=== PATIENT | female | born 1985 | race Caucasian/White ===

== ENCOUNTER → 2020-01-23 15:58 | Outpatient (BNVA) | payer SELFPAY | PROVIDERS: Visit Provider Nurse Practitioner Family | DX: Z79.899 Other long term (current) drug therapy (principal); Z13.6 Encounter for screening for cardiovascular disorders; R53.83 Other fatigue; E55.9 Vitamin D deficiency, unspecified; K59.04 Chronic idiopathic constipation; R10.9 Unspecified abdominal pain | CPT/HCPCS: 74018; 80053; 80061; 82150; 83036; 83690; 83721; 84443; 85025 ==

== ENCOUNTER → 2020-01-24 11:00 | Outpatient (BNVA) | payer SELFPAY | PROVIDERS: Visit Provider Nurse Practitioner Family | DX: Z79.899 Other long term (current) drug therapy (principal); Z13.6 Encounter for screening for cardiovascular disorders; R53.83 Other fatigue; K59.04 Chronic idiopathic constipation; E55.9 Vitamin D deficiency, unspecified | CPT/HCPCS: 82306 ==

== ENCOUNTER → 2020-02-20 10:53 | Outpatient (BNVA) | payer SELFPAY | PROVIDERS: Visit Provider Nurse Practitioner Family | DX: Z12.4 Encounter for screening for malignant neoplasm of cervix (principal); N89.8 Other specified noninflammatory disorders of vagina; C51.9 Malignant neoplasm of vulva, unspecified; A59.01 Trichomonal vulvovaginitis; B37.3 Candidiasis of vulva and vagina | CPT/HCPCS: 87070; 87205; 88175 ==

== ENCOUNTER → 2021-08-25 15:41 | Outpatient (BNVA) | payer MEDICAID, SELFPAY | PROVIDERS: PCP Registered Nurse; Visit Provider Registered Nurse | DX: R30.0 Dysuria (principal); R39.9 Unspecified symptoms and signs involving the genitourinary system | CPT/HCPCS: 81000; 87086 ==

== ENCOUNTER 2021-10-07 12:02 | Emergency (ER) | payer MEDICAID, SELFPAY ==
[2021-10-07 12:17] VITALS: BP 125/78; PULSE 69; RESP 12; TEMP 36.6; O2SAT 99; BMI 29.8
[2021-10-07 13:36] LABS: Basophils # 0.1 10^3/uL (0.0-0.1); Basophils % 0.8 %; Eosinophils # 0.2 10^3/uL (0.0-0.8); Eosinophils % 2.6 %; Hematocrit 43.5 % (37.0-47.0); Hemoglobin 14.2 g/dL (11.5-15.3); Lymphocytes # 2.4 10^3/uL (0.8-4.8); Mean Corpuscular HGB Conc 32.6 g/dL (30.0-36.0); Mean Corpuscular Hemoglobin 29.9 pg (28.0-34.0); Mean Corpuscular Volume 91.6 fl (81-99); Mean Platelet Volume 9.9 fL (7.4-10.4); Monocytes # 0.6 10^3/uL (0.2-0.9); Monocytes % 6.2 %; Neutrophils # 5.94 10^3/uL (1.8-7.7); Neutrophils % 64.1 %; Nucleated Red Blood Cells % 0 %; Platelet Count 393 10^3/cmm (130-400); Red Blood Count 4.75 10^6/uL (4.1-5.3); Red Cell Distribution Width 13.6 % (12.1-15.1); White Blood Count 9.3 10^3/uL (4.0-10.0)
[2021-10-07 13:52] LABS: Alanine Aminotransferase 25 U/L (0-33); Albumin Level 4.2 g/dL (3.5-5.2); Alkaline Phosphatase 107 IU/L (35-105); Anion Gap 11.4 (5-19); Aspartate Amino Transferase 18 U/L (0-32); Blood Urea Nitrogen 8 mg/dL (6-20); Carbon Dioxide 29 mmol/L (22-29); Chloride 98 mmol/L (98-107); Globulin 2.8 g/dL (1.3-4.6); Glomerular Filtration Rate 81.6 mL/min (90-130); Glucose 89 mg/dL (65-115); Osmolality Calculated 278 mOsm/kg (285-295); Potassium 3.4 mmol/L (3.5-5.1); Sodium 135 mmol/L (136-145); Total Bilirubin 0.4 mg/dL (0.15-1.2)
--- NOTE | 2021-10-07 13:53 | W.ED.ABDPA2 ---
Documented by User: LIZ Ramos 10/07/21 14:24 HPI - Abdominal Pain General: Chief Complaint: Back Pain/Injury Stated Complaint: low back/abd pain Time Seen by Provider: 10/07/21 13:20 Source: patient Mode of arrival: ambulatory Limitations: no limitations History of Present Illness: Patient is a 36-year-old female presents to ED today with a complaint of bilateral flank pain wrapping around into her epigastric region over the past 5 to 6 days. She states she does have a history of pyelonephritis but thinks this feels different. She has been taking large amounts of ibuprofen for her discomfort and does state this seems to alleviate her pain. She is not having any dysuria or hematuria. She does report some urgency and frequency. She is not having any vaginal discharge, odor, bleeding. She has not been running fevers. No vomiting. She is having normal bowel movements. No history of GI bleed. MD elicited complaint: abdominal pain Onset (ago): day(s) Pain Consistency: constant Location: Epigastric Severity: severe Pain scale (0-10): 8 Quality: aching Relieving factors: other (ibuprofen) Associated Symptoms: Reports heartburn; Denies change in bowel habits, chills, constipation, diarrhea, dysuria, fever(s), hematuria, hematemesis and vomiting Treatments prior to arrival: NSAIDs Review of Systems Const: Denies: fever(s), chills, body aches, fatigue or malaise Card: Denies: chest pain Resp: Denies: dyspnea GI: Reports: abdominal pain and heartburn; Denies: vomiting, hematemesis, diarrhea, constipation or change in bowel habits : Denies: flank pain, dysuria, hematuria, vaginal odor, vaginal bleeding, vaginal discharge or pelvic pain Musc: Reports: back pain (flank pain); Denies: neck pain, extremity pain or joint pain Skin/Breast: Denies: rash Neuro: Denies: headache(s), numbness in extremities, weakness in extremities or sensory changes PFS ED PFSH: Medical History Acute bacterial pharyngitis Anxiety and depression Candidiasis of vagina Cellulitis of earlobe Cervical cancer screening Chronic idiopathic constipation Cyst on ear Disorder of ear lobe Fatigue Hypertension screen Menstrual irregularity Squamous cell carcinoma of vulva Vaginal discharge Vitamin D deficiency Surgical History Status post delivery Status post tubal ligation Family History Father Diabetes Grandmother Diabetes Hypertension Mother Hypertension Thyroid condition Social History Smoking and tobacco status: current every day smoker Alcohol intake: never Female Reproductive History: Para: 2 Spontaneous abortions: Yes Physical Exam Const: COMMON NORMALS: no acute distress, patient oriented x3, no limitations and alert GENERAL APPEARANCE: cooperative ORIENTATION/CONSCIOUSNESS: Yes awake, Yes oriented to person, Yes oriented to place and Yes oriented to time HENMT: COMMON NORMALS: normocephalic and atraumatic HEAD & SCALP: normal to inspection, normocephalic and atraumatic Chest: COMMONS NORMALS: normal inspection of the chest and normal palpation of entire chest wall Resp: COMMON NORMALS: normal respiratory effort and clear to auscultation bilaterally AUSCULTATION: clear to auscultation bilaterally Cardio: COMMON NORMALS: regular rate and regular rhythm RATE: regular rate RHYTHM: regular rhythm GI: COMMON NORMALS: Normal to inspection, nondistended, normoactive bowel sounds present, Soft to palpation, No hepatosplenomegaly present and no masses INSPECTION: Yes normal to inspection PALPATION: Yes Soft to palpation, Yes Tenderness to palpation present (GI) (palpation of epigastric region reproduces pain), No Guarding due to palpation present (GI), No Rigid due to palpation and Yes No hepatosplenomegaly present : BLADDER/KIDNEY EXAM: Yes CVA tenderness (mild-equal bilaterally) Back/Pelvis: COMMON NORMALS: thoracic and lumbar spine normal to inspection, no thoracic nor lumbar tenderness and thoraco-lumbar ROM normal GENERAL BACK: Yes CVA tenderness (mild-equal bilaterally) Extremity: COMMON NORMALS: normal to inspection GENERAL: Yes normal exam except as noted Neuro: JOSELUIS COMA SCALE: document GCS findings Joseluis coma scale eye opening: Spontaneous [place] coma scale verbal response: Orientated Joseluis coma scale motor response: Obey commands Joseluis coma scale total score: 15 COMMON NORMALS: patient oriented x3, moves all extremities, no focal motor deficits and no sensory deficits noted SENSORIUM/ORIENTATION: Yes alert, Yes oriented to person, Yes oriented to place and Yes oriented to time Skin: COMMON NORMALS: no rashes or lesions noted GENERAL SKIN EXAM: no rashes or lesions noted TRAUMA: no lacerations or abrasions Course Vital Signs: Vital signs: Vital Signs Temperature 98 F 10/07/21 12:17 Pulse Rate 69 10/07/21 12:17 Respiratory Rate 12 10/07/21 12:17 Blood Pressure 125/78 10/07/21 12:17 Pulse Oximetry 99 10/07/21 12:17 MDM - Abdominal Pain Medical Decision Making Patient's epigastric pain went from an 8/10 to a 2/10 following administration of a GI cocktail. Recommend she discontinue ibuprofen/NSAID use. We will place her on Protonix. Recommend follow-up with her primary care provider in a week or so for further evaluation. She denies previous GI bleed. She is not having any hematemesis or dark or tarry stools. Denies alcohol use. Blood work/UA unremarkable. Return to ED precautions given. Lab Data : 10/07/21 13:18 10/07/21 13:18 Labs/Radiology: Laboratory Results WBC 9.3 10^3/uL (4.0-10.0) 10/07/21 13:18 RBC 4.75 10^6/uL (4.1-5.3) 10/07/21 13:18 Hgb 14.2 g/dL (11.5-15.3) 10/07/21 13:18 Hct 43.5 % (37.0-47.0) 10/07/21 13:18 MCV 91.6 fl (81-99) 10/07/21 13:18 MCH 29.9 pg (28.0-34.0) 10/07/21 13:18 MCHC 32.6 g/dL (30.0-36.0) 10/07/21 13:18 RDW 13.6 % (12.1-15.1) 10/07/21 13:18 Plt Count 393 10^3/cmm (130-400) 10/07/21 13:18 MPV 9.9 fL (7.4-10.4) 10/07/21 13:18 Neut % (Auto) 64.1 % 10/07/21 13:18 Lymph % (Auto) 26.0 % 10/07/21 13:18 [place] % (Auto) 6.2 % 10/07/21 13:18 Eos % (Auto) 2.6 % 10/07/21 13:18 Baso % (Auto) 0.8 % 10/07/21 13:18 Neut # (Auto) 5.94 10^3/uL (1.8-7.7) 10/07/21 13:18 Lymph # (Auto) 2.4 10^3/uL (0.8-4.8) 10/07/21 13:18 [place] # (Auto) 0.6 10^3/uL (0.2-0.9) 10/07/21 13:18 Eos # (Auto) 0.2 10^3/uL (0.0-0.8) 10/07/21 13:18 Baso # (Auto) 0.1 10^3/uL (0.0-0.1) 10/07/21 13:18 Nucleated RBC % (auto) 0 % 10/07/21 13:18 Nucleated RBCs # 0.0 /100WBC 10/07/21 13:18 Sodium 135 mmol/L (136-145) L 10/07/21 13:18 Potassium 3.4 mmol/L (3.5-5.1) L 10/07/21 13:18 Chloride 98 mmol/L (98-107) 10/07/21 13:18 Carbon Dioxide 29 mmol/L (22-29) 10/07/21 13:18 Anion Gap 11.4 (5-19) 10/07/21 13:18 BUN 8 mg/dL (6-20) 10/07/21 13:18 Creatinine 0.8 mg/dL (0.5-0.9) 10/07/21 13:18 GFR Calculation 81.6 mL/min (90-130) L 10/07/21 13:18 Glucose 89 mg/dL (65-115) 10/07/21 13:18 Calculated Osmolality 278 mOsm/kg (285-295) L 10/07/21 13:18 Calcium 9.0 mg/dL (8.5-10.5) 10/07/21 13:18 Total Bilirubin 0.4 mg/dL (0.15-1.2) 10/07/21 13:18 AST 18 U/L (0-32) 10/07/21 13:18 ALT 25 U/L (0-33) 10/07/21 13:18 Alkaline Phosphatase 107 IU/L (35-105) H 10/07/21 13:18 Total Protein 7.0 g/dL (6.6-8.7) 10/07/21 13:18 Albumin 4.2 g/dL (3.5-5.2) 10/07/21 13:18 Globulin 2.8 g/dL (1.3-4.6) 10/07/21 13:18 HCG, Qual Negative (Negative) 10/07/21 13:18 Urine Color Yellow (Yellow) 10/07/21 13:35 Urine Appearance Clear (CLEAR) 10/07/21 13:35 Urine pH 6 (5-7) 10/07/21 13:35 Ur Specific [place] 1.015 (1.005-1.030) 10/07/21 13:35 Urine Protein Neg (Negative) 10/07/21 13:35 Urine Glucose (UA) 2+ (Normal) H 10/07/21 13:35 Urine Ketones Negative (Negative) 10/07/21 13:35 Urine Blood Neg (Negative) 10/07/21 13:35 Urine Nitrate Negative (Negative) 10/07/21 13:35 Urine Bilirubin Neg (Negative) 10/07/21 13:35 Urine Urobilinogen Norm mg/dL (Negative) 10/07/21 13:35 Ur Leukocyte Esterase Negative (Negative) 10/07/21 13:35 Urine RBC 15-25 /hpf (0-2) H 10/07/21 13:35 Urine WBC None /hpf (0-5) 10/07/21 13:35 Ur Squamous Epith Cells 0-4 /hpf (0-5) H 10/07/21 13:35 Amorphous Sediment Not Reportable 10/07/21 13:35 Urine Bacteria Trace /hpf (NONE) 10/07/21 13:35 Discharge Plan Discharge Patient Disposition: Home Clinical Impression: Gastritis Qualifiers: Gastritis type: unspecified gastritis Chronicity: acute Gastritis bleeding: without bleeding Qualified Code(s): K29.00 - Acute gastritis without bleeding Condition: Stable Prescriptions: New Protonix 40 mg tablet,delayed release (DR/EC) 40 mg PO DAILY 28 Days Qty: 28 0RF No Action nitrofurantoin monohyd/m-cryst [Macrobid] 100 mg capsule 100 mg PO BID 7 Days Qty: 14 0RF Rx Instructions: must administer with a meal/food fluconazole [Diflucan] 150 mg tablet 150 mg PO .Now repeat in 7 days Qty: 2 0RF Discharge Orders: Discharge ED (Routine); Ordered 10/07/21 Ordered By: Rohini Zhang Referrals: Gisell Rodriguez, HEAD OF TRAINING AND DEVELOPMENT [Primary Care Provider] - Coding Level of Care Code ED Commodity Trader for Chg Fwd Exam Comprehensive Documented by User: Cain Esteban MD 10/11/21 11:42 HPI - Abdominal Pain General: Chief Complaint: Back Pain/Injury Stated Complaint: low back/abd pain Time Seen by Provider: 10/07/21 13:20 PFSH ED PFSH: Medical History Acute bacterial pharyngitis Anxiety and depression Candidiasis of vagina Cellulitis of earlobe Cervical cancer screening Chronic idiopathic constipation Cyst on ear Disorder of ear lobe Fatigue Hypertension screen Menstrual irregularity Squamous cell carcinoma of vulva Vaginal discharge Vitamin D deficiency Surgical History Status post delivery Status post tubal ligation Family History Father Diabetes Grandmother Diabetes Hypertension Mother Hypertension Thyroid condition Social History Smoking and tobacco status: current every day smoker Alcohol intake: never Physical Exam Neuro: JOSELUIS COMA SCALE: document GCS findings Joseluis coma scale total score: 15 Course Vital Signs: Vital signs: Vital Signs Temperature 98 F 10/07/21 12:17 Pulse Rate 69 10/07/21 12:17 Respiratory Rate 12 10/07/21 12:17 Blood Pressure 125/78 10/07/21 12:17 Pulse Oximetry 99 10/07/21 12:17 MDM - Abdominal Pain Medical Decision Making Patient's epigastric pain went from an 8/10 to a 2/10 following administration of a GI cocktail. Recommend she discontinue ibuprofen/NSAID use. We will place her on Protonix. Recommend follow-up with her primary care provider in a week or so for further evaluation. She denies previous GI bleed. She is not having any hematemesis or dark or tarry stools. Denies alcohol use. Blood work/UA unremarkable. Return to ED precautions given. Dr. Esteban - Patient evaluation, diagnosis, and management was performed independently by Rohini Zhang. I did not personally see the patient nor staff the patient with patient's provider. I did review the patient's note today and I believe this note is consistent. Lab Data : 10/07/21 13:18 10/07/21 13:18 Labs/Radiology: Laboratory Results WBC 9.3 10^3/uL (4.0-10.0) 10/07/21 13:18 RBC 4.75 10^6/uL (4.1-5.3) 10/07/21 13:18 Hgb 14.2 g/dL (11.5-15.3) 10/07/21 13:18 Hct 43.5 % (37.0-47.0) 10/07/21 13:18 MCV 91.6 fl (81-99) 10/07/21 13:18 MCH 29.9 pg (28.0-34.0) 10/07/21 13:18 MCHC 32.6 g/dL (30.0-36.0) 10/07/21 13:18 RDW 13.6 % (12.1-15.1) 10/07/21 13:18 Plt Count 393 10^3/cmm (130-400) 10/07/21 13:18 MPV 9.9 fL (7.4-10.4) 10/07/21 13:18 Neut % (Auto) 64.1 % 10/07/21 13:18 Lymph % (Auto) 26.0 % 10/07/21 13:18 [place] % (Auto) 6.2 % 10/07/21 13:18 Eos % (Auto) 2.6 % 10/07/21 13:18 Baso % (Auto) 0.8 % 10/07/21 13:18 Neut # (Auto) 5.94 10^3/uL (1.8-7.7) 10/07/21 13:18 Lymph # (Auto) 2.4 10^3/uL (0.8-4.8) 10/07/21 13:18 [place] # (Auto) 0.6 10^3/uL (0.2-0.9) 10/07/21 13:18 Eos # (Auto) 0.2 10^3/uL (0.0-0.8) 10/07/21 13:18 Baso # (Auto) 0.1 10^3/uL (0.0-0.1) 10/07/21 13:18 Nucleated RBC % (auto) 0 % 10/07/21 13:18 Nucleated RBCs # 0.0 /100WBC 10/07/21 13:18 Sodium 135 mmol/L (136-145) L 10/07/21 13:18 Potassium 3.4 mmol/L (3.5-5.1) L 10/07/21 13:18 Chloride 98 mmol/L (98-107) 10/07/21 13:18 Carbon Dioxide 29 mmol/L (22-29) 10/07/21 13:18 Anion Gap 11.4 (5-19) 10/07/21 13:18 BUN 8 mg/dL (6-20) 10/07/21 13:18 Creatinine 0.8 mg/dL (0.5-0.9) 10/07/21 13:18 GFR Calculation 81.6 mL/min (90-130) L 10/07/21 13:18 Glucose 89 mg/dL (65-115) 10/07/21 13:18 Calculated Osmolality 278 mOsm/kg (285-295) L 10/07/21 13:18 Calcium 9.0 mg/dL (8.5-10.5) 10/07/21 13:18 Total Bilirubin 0.4 mg/dL (0.15-1.2) 10/07/21 13:18 AST 18 U/L (0-32) 10/07/21 13:18 ALT 25 U/L (0-33) 10/07/21 13:18 Alkaline Phosphatase 107 IU/L (35-105) H 10/07/21 13:18 Total Protein 7.0 g/dL (6.6-8.7) 10/07/21 13:18 Albumin 4.2 g/dL (3.5-5.2) 10/07/21 13:18 Globulin 2.8 g/dL (1.3-4.6) 10/07/21 13:18 HCG, Qual Negative (Negative) 10/07/21 13:18 Urine Color Yellow (Yellow) 10/07/21 13:35 Urine Appearance Clear (CLEAR) 10/07/21 13:35 Urine pH 6 (5-7) 10/07/21 13:35 Ur Specific [place] 1.015 (1.005-1.030) 10/07/21 13:35 Urine Protein Neg (Negative) 10/07/21 13:35 Urine Glucose (UA) 2+ (Normal) H 10/07/21 13:35 Urine Ketones Negative (Negative) 10/07/21 13:35 Urine Blood Neg (Negative) 10/07/21 13:35 Urine Nitrate Negative (Negative) 10/07/21 13:35 Urine Bilirubin Neg (Negative) 10/07/21 13:35 Urine Urobilinogen Norm mg/dL (Negative) 10/07/21 13:35 Ur Leukocyte Esterase Negative (Negative) 10/07/21 13:35 Urine RBC 15-25 /hpf (0-2) H 10/07/21 13:35 Urine WBC None /hpf (0-5) 10/07/21 13:35 Ur Squamous Epith Cells 0-4 /hpf (0-5) H 10/07/21 13:35 Amorphous Sediment Not Reportable 10/07/21 13:35 Urine Bacteria Trace /hpf (NONE) 10/07/21 13:35 Discharge Plan Discharge Patient Disposition: Home Clinical Impression: Gastritis Qualifiers: Gastritis type: unspecified gastritis Chronicity: acute Gastritis bleeding: without bleeding Qualified Code(s): K29.00 - Acute gastritis without bleeding Condition: Stable Prescriptions: New Protonix 40 mg tablet,delayed release (DR/EC) 40 mg PO DAILY 28 Days Qty: 28 0RF No Action nitrofurantoin monohyd/m-cryst [Macrobid] 100 mg capsule 100 mg PO BID 7 Days Qty: 14 0RF Rx Instructions: must administer with a meal/food fluconazole [Diflucan] 150 mg tablet 150 mg PO .Now repeat in 7 days Qty: 2 0RF Discharge Orders: Discharge ED (Routine); Ordered 10/07/21 Ordered By: Rohini Zhang Referrals: Gisell Rodriguez FNP [Primary Care Provider] - Coding Level of Care Code ED Commodity Trader for Chg Fwd Exam Comprehensive
[2021-10-07] MEDS: lidocaine 2% viscous 15 ML, aluminum-mag hydrox-simethicon 30 ML, sucralfate oral liq 1 GM PO (13:58)
[2021-10-07 14:07] LABS: Protein Urine Neg (Negative); Specific Gravity, Urine 1.015 (1.005-1.030); Urine Appearance Clear (CLEAR); Urine Color Yellow (Yellow); pH Urine 6 (5-7)
[2021-10-07 14:08] LABS: Add Urine Microscopic? YES; Bilirubin Urine Neg (Negative); Blood Urine Neg (Negative); Glucose Urine UA 2+ (Normal); Ketones Urine Negative (Negative); Leukocyte Esterase Urine Negative (Negative); Nitrate Urine Negative (Negative); Urobilinogen Urine Norm (Negative)
[2021-10-07 14:12] LABS: Add Urine Culture? No; Bacteria Urine TRACE /hpf; RBC Urine 15-25 /hpf (0-2); Squamous Epithelial Cell Urine 0-4 /hpf (0-5)
[2021-10-07 14:29] LABS: HCG, Serum Qual Negative (Negative)
== END 2021-10-07 14:35 | disposition home or self-care (01) ==
PROVIDERS: Emergency Provider Physician Assistant; PCP Registered Nurse
DX: K29.00 Acute gastritis without bleeding (principal); F17.210 Nicotine dependence, cigarettes, uncomplicated
CPT/HCPCS: 80053; 81001; 84703; 85025; 99283

== ENCOUNTER → 2021-10-28 12:35 | Outpatient (BNVA) | payer MEDICAID, SELFPAY | PROVIDERS: PCP Registered Nurse; Referring Provider Dermatology; Visit Provider Surgery | DX: K80.20 Calculus of gallbladder without cholecystitis without obstruction (principal) | CPT/HCPCS: 99203 ==

== ENCOUNTER 2021-11-23 05:47 | Day surgery (SDC) | payer MEDICAID, SELFPAY ==
[2021-11-20 12:17] VITALS: BMI 28.3
[2021-11-23] VITALS (8 sets, daily range): BP systolic 97–119; BP diastolic 60–75; PULSE 63–77; RESP 16–18; TEMP 36.2–37.2; O2SAT 95–100
--- NOTE | 2021-11-23 05:51 | W.PM.OPSUD ---
Surgery/Procedure H&P Update DATE OF PROCEDURE: November 23, 2021 DATE H&P PERFORMED: 10/28/21 H&P UPDATE INFORMATION: I have reviewed H&P completed within last 30 days, I have examined patient prior to procedure and No changes to prior documentation PRIMARY INDICATION FOR PROCEDURE: The same PLANNED PROCEDURE: Operation Date: 11/23/21 07:10 Proposed Procedures p Laparoscopic Cholecystectomy 77454,K80.20(Not Applicable) - Sebastian Vee MD
[2021-11-23] MEDS: sodium chloride 0.9% 1,000 ML 30 ML IV (06:24)
[2021-11-23] MEDS: acetaminophen 1,000 MG/100 ML PIGGYBACK 400 MG IV (06:25)
[2021-11-23] MEDS: heparin 5,000 unit/mL INJ 1 mL 2000 UNIT SUBCUT (06:26)
[2021-11-23 06:35] LABS: OR HCG Qualitative Urine Negative (Negative)
--- NOTE | 2021-11-23 06:46 | ANES.PREANE2 ---
Pre-Anesthetic Assessment Height/Weight: Height 1.57 m Weight 70.307 kg Temp Pulse Resp BP Pulse Ox O2 Del Method 99 F 63 18 97/61 96 11/23/21 06:13 11/23/21 06:13 11/23/21 06:13 11/23/21 06:13 11/23/21 06:13 11/23/21 06:15 Preop Diagnosis: Symptomatic cholelithiasis Operation Date: 11/23/21 07:10 Proposed Procedures p Laparoscopic Cholecystectomy 54220,K80.20(Not Applicable) - Sebastian Vee MD Familial anesthetic complications: None Was Beta Rosette taken within 24 hours: N/A Was Clonidine taken within 24 hours: N/A Last intake: Intake Last Liquid Date 11/22/21 Last Liquid Time 23:30 Last Solid Date 11/22/21 Last Solid Time 19:00 Social Tobacco and No alcohol Exam alert, oriented x 3, clear to auscultation bilaterally and regular rate & rhythm Airway Mallampati: Class I Dentition: false Pulmonary None reported CV/HEM None reported None reported Hepatic None reported GI None reported Metabolic None reported Musc/skel None reported Neuropsych None reported Anesthetic Plan ASA status: 2 Anesthesia: General Risk of > 500 ml blood loss (7ml/kg in children): No Medications/Allergies Home Medications Medication Instructions Recorded Confirmed Last Taken Type dupilumab 300 mg/2 mL subcutaneous mg SUBCUT ONCE 10/28/21 10/29/21 Unknown History pen injector (Dupixent) Allergies Allergy/AdvReac Type Severity Reaction Status Date / Time No Known Allergies Allergy Verified 10/29/21 06:53 Current Medications Generic Name Dose Route Start Last Admin Trade Name Savanna PRN Reason Stop Dose Admin Sodium Chloride 1,000 mls @ 30 mls/hr 11/23/21 06:00 11/23/21 06:24 Sodium Chloride 0.9% IV 11/24/21 05:59 30 mls/hr .Q24H NATHALIE Administration PFSH Anesthesia Medical History Acute bacterial pharyngitis Anxiety and depression Candidiasis of vagina Cellulitis of earlobe Cervical cancer screening Chronic idiopathic constipation Cyst on ear Disorder of ear lobe Fatigue Hypertension screen Menstrual irregularity Squamous cell carcinoma of vulva Vaginal discharge Vitamin D deficiency Surgical History Status post delivery Status post tubal ligation Family History Father Diabetes Grandmother Diabetes Hypertension Mother Hypertension Thyroid condition Social History Smoking and tobacco status: current every day smoker Alcohol intake: never Female Reproductive History Date of last menstrual period: 10/20/21 Para: 2 Spontaneous abortions: Yes Data Anesthesia Cardiac Studies: No Data to Display
[2021-11-23] MEDS: ampicillin-sulbactam 3 GM in sodium chloride 0.9% (plus) 50 ML IV (07:00)
[2021-11-23] MEDS: lidocaine 2% INJ 20 mL INJECTION (07:29)
--- NOTE | 2021-11-23 08:11 | P.OP_ITS ---
Operative Report Date of procedure: November 23, 2021 Pre-op diagnosis: Preop Diagnosis Symptomatic cholelithiasis Post-op diagnosis: other (Acute on top of chronic calculus cholecystitis) Post-op findings: Fatty liver Procedure done: Laparoscopic cholecystectomy Implants: Surgicel at the gallbladder fossa Specimens removed/disposition: Gallbladder and contents Surgeon: Sebastian Vee MD Mud Jack Operator: Surgical wilson Byrnes and Nani Circulating nurse Marj Casillas Anesthesia: General (PATRICE Solitario) Estimated blood loss (mL): 15 IV fluids (mL): 1,100 Complications: No immediate complication Procedure: Patient was identified in the holding area and taken back to the operative suite, placed in supine position intubated by anesthesia . Time-out was done verifying the patient's name/date of /planned procedure and destination after the procedure, all were in agreement. SCDs confirmed to be functioning, preoperative antibiotics administered per protocol, and beta chris protocol was confirmed. Patient was appropriately secured to the table, footboard was applied to the OR table, before prep and drape anesthesia was asked to tilt the table back and forth to make sure that the patient is appropriately secured and she was. Prep and drape of the abdomen was done under the usual sterile technique, followed by that supraumbilical skin incision,skin incision was done by a 15 blade knife, and stay sutures were applied to the fascia and Gonzalez trocar technique was used to enter the abdominal without injuring any abdominal viscera, started by low flow gas insufflation followed by a high flow, started with a 10 mm laparoscope and under direct vision there was no evidence of any injuries, the scope then switched to a 30? ,10 millimeter scope and under direct visualization 5 millimeter trocar was inserted in the epigastric region followed by two 5 mm trocars were inserted in the right upper quadrant that was done after injection of local lidocaine 2% at all incision sites. Gallbladder showed acute on top of chronic cholecystitis and enlarged fatty Sienna er Patient was then positioned in the head up and tilted to the left. Ratcheted forceps were introduced into the lateral most 5mm port and was applied unto the fundus of the gallbladder cephalad and using Bullet forceps the infundibulum of the gallbladder was retracted laterally. Using [place] forceps then L-hook cautery to dissect the peritoneum overlying the Calot's triangle which was then opened medially and laterally until the cystic duct and the cystic artery were skeletonized. Dissection was carried along the body of the gallbladder and after ensuring critical view of safety was identfied. Cystic duct and cystic artery where seen connected to the gallbladder. Clips were applied on the cystic duct towards the common bile duct 1 towards the gallbladder then divided is in sharp scissors, 2 clips were then applied onto the cystic artery and 1 towards the gallbladder and divided by sharp scissors. Additional clip was applied on the traversing small vessel and was divided. Dissection was then carried along of the gallbladder from the gallbladder fossa using cautery as well as sharp dissection with heat energy. The gallbladder then was dissected out from the gallbladder fossa totally , cholecystectomy was then achieved and was placed in an Endo Catch bag and then retrieved from the Gonzalez trocar site under direct visualization using a 5 mm 30? scope through the epigastric trocar, specimen was then passed to the circulating nurse to go for permanent pathology,irrigation and hemostasis was done to the gallbladder fossa after hemostasis was secured after application of 3 pieces of Surgicel., final survey laparoscopy was done that showed no injuries. Suction irrigation was obtained. The supraumbilical fascial defect was then closed using interrupted number one PDS sutures using a fascial closure device ;Gregorio Willams under direct visualization,following that Gas was allowed to deflate,Trocars were then taken out under direct vision there was no evidence of bleeding. Specimen was passed to the circulating nurse for permanent pathology. No drains were placed and the supraumbilical incision as well as all trocar sites were closed by 3/0 Vicryl followed by 4-0 Monocryl to approximate the skin edges of the incisions , dressing was applied in the form of surical glue and the patient patient got extubated and was taken to recovery area in a stable condition. Count of sponges,needles and instruments were completed at the end of the procedure I was present for the whole entire procedure.
[2021-11-23] MEDS: HYDROcodone-acetaminophen 5-325 mg Tablet 1 TAB PO (09:18)
--- NOTE | 2021-11-23 13:47 | ANE.PACU2 ---
Inpatient post-anesthesia follow up: Airway intact: Yes Vital signs: Temperature 97.3 F Pulse Rate 76 Respiratory Rate 18 Blood Pressure 102/66 Pulse Oximetry 96 Oxygen Delivery Me thod Room Air Oxygen Flow Rate 6 Fraction of Inspir ed Oxygen Hydration adequate: Yes Nausea and vomiting: No Pain level: 1 Mental status: Baseline
== END 2021-11-23 09:32 | disposition home or self-care (01) ==
PROVIDERS: Anesthesiology; PCP Registered Nurse; Visit Provider Surgery
PROC: 0FT44ZZ Resection of Gallbladder, Percutaneous Endoscopic Approach (ICD-10-PCS; CPT 47562; principal; 2021-11-23 07:00)
DX: K80.10 Calculus of gallbladder with chronic cholecystitis without obstruction (principal); F41.9 Anxiety disorder, unspecified; F32.A Depression, unspecified; F17.210 Nicotine dependence, cigarettes, uncomplicated
CPT/HCPCS: 47562; 81025; 84703; 88304; J0295; J1100; J1170; J1200; J1644; J2250; J2370; J2405; J2704; J2710; J3010; J3490; J7030

== ENCOUNTER → 2021-12-03 14:55 | Outpatient (BNVA) | payer MEDICAID, SELFPAY | PROVIDERS: PCP Registered Nurse; Visit Provider Surgery | DX: Z98.890 Other specified postprocedural states (principal); Z90.49 Acquired absence of other specified parts of digestive tract | CPT/HCPCS: 99024 ==

== ENCOUNTER → 2023-04-07 09:21 | Outpatient (BNVA) | payer MEDICAID, SELFPAY | PROVIDERS: PCP Registered Nurse; Visit Provider Nurse Practitioner Family | DX: R09.81 Nasal congestion (principal) | CPT/HCPCS: 87426 ==

== ENCOUNTER → 2023-07-26 08:42 | Outpatient (BNVA) | payer MEDICAID, SELFPAY | PROVIDERS: PCP Nurse Practitioner Family; Visit Provider Nurse Practitioner Family | DX: Z20.2 Contact with and (suspected) exposure to infections with a predominantly sexual mode of transmission (principal); Z13.6 Encounter for screening for cardiovascular disorders; Z12.4 Encounter for screening for malignant neoplasm of cervix; R10.9 Unspecified abdominal pain | CPT/HCPCS: 74018; 80053; 80061; 81003; 83036; 84443; 85025; 86592; 86695; 86696; 87070; 87205; 87491; 87591; 87806; 88175 ==

== ENCOUNTER → 2023-10-28 10:49 | Outpatient (BNVA) | payer MEDICAID, SELFPAY | PROVIDERS: PCP Nurse Practitioner Family; Visit Provider Podiatrist Foot & Ankle Surgery | DX: L60.3 Nail dystrophy (principal); E78.2 Mixed hyperlipidemia | CPT/HCPCS: 80053; 80061 ==

== ENCOUNTER → 2023-11-22 10:54 | Outpatient (BNVA) | payer MEDICAID, SELFPAY | PROVIDERS: PCP Nurse Practitioner Family; Visit Provider Podiatrist Foot & Ankle Surgery | DX: L60.3 Nail dystrophy (principal) | CPT/HCPCS: 36415; 80053 ==

== ENCOUNTER → 2024-05-16 11:04 | Outpatient (BNVA) | payer MEDICAID, SELFPAY | PROVIDERS: PCP Nurse Practitioner Family; Visit Provider Podiatrist Foot & Ankle Surgery | DX: B35.1 Tinea unguium (principal); L60.8 Other nail disorders; L60.3 Nail dystrophy | CPT/HCPCS: 36415; 80053 ==

== ENCOUNTER → 2024-10-16 09:14 | Outpatient (BNVA) | payer MEDICAID, SELFPAY | PROVIDERS: PCP Nurse Practitioner Family; Visit Provider Nurse Practitioner Family | DX: E66.811 Obesity, class 1 (principal); E66.09 Other obesity due to excess calories; Z68.31 Body mass index [BMI] 31.0-31.9, adult; E78.2 Mixed hyperlipidemia; E55.9 Vitamin D deficiency, unspecified; R53.83 Other fatigue; F41.9 Anxiety disorder, unspecified; Z79.899 Other long term (current) drug therapy | CPT/HCPCS: 80053; 80061; 81003; 82306; 83036; 84443; 85025; 86480; 87086 ==

== ENCOUNTER → 2024-12-19 10:38 | Outpatient (BNVA) | payer MEDICAID, SELFPAY | PROVIDERS: PCP Nurse Practitioner Family; Visit Provider Nurse Practitioner Family | DX: R31.9 Hematuria, unspecified (principal); N39.0 Urinary tract infection, site not specified | CPT/HCPCS: 81000; 81003; 87086 ==